=== PATIENT | female | born 1945 | race Two or more races ===

== ENCOUNTER 2017-07-22 02:50 | Emergency (ER) | payer OTHER ==
[~2017-07-22] VITALS: Ht 160 cm; Wt 96.2 kg
[2017-07-22] MEDS ORDERED: FOLIC ACID0.4 MG (03:09)
[2017-07-22] MEDS ORDERED: METHOTREXATE2.5 MG (03:10)
[2017-07-22] MEDS ORDERED: TRIAMTERENE-HC1 EAC3 (03:12)
[2017-07-22] MEDS ORDERED: ZANTAC150 MG PO (15:21)
[2017-07-22] MEDS ORDERED: KETO10TA2 PO (15:21)
[2017-07-22] MEDS ORDERED: LEVSIN/SL0.125 MG PO (15:21)
[2017-07-22] MEDS ORDERED: CIPRO500 MG PO (15:21)
== END 2017-07-22 15:36 | disposition home or self-care (01) ==
LOC: ER 02:50
DX: K80.80 Other cholelithiasis without obstruction (principal)

== ENCOUNTER 2019-02-15 14:22 | Emergency (ER) | payer OTHER ==
[~2019-02-15] VITALS: Ht 157.5 cm; Wt 90.7 kg
[~2019-02-15 14:22] MED LIST: CIPRO500 MG PO; FOLIC ACID0.4 MG; KETO10TA2 PO; LEVSIN/SL0.125 MG PO; METHOTREXATE2.5 MG; TRIAMTERENE-HC1 EAC3; ZANTAC150 MG PO
[2019-02-15] MEDS ORDERED: METHOTREXATE2.5 MG PO (14:45)
== END 2019-02-15 17:13 | disposition home or self-care (01) ==
LOC: ER
DX: M94.0 Chondrocostal junction syndrome [Tietze] (principal)